=== PATIENT | female | born 1980 | race Caucasian/White ===

== ENCOUNTER → 2018-01-15 | Outpatient (CLI) | payer OTHER, BC ==
[~2018-01-15] MED LIST: ACET500; CIPRO500 MG PO; CLIN300 PO; CYCL10 PO; HYDACE5 PO; IBUP600 PO; IBUP800 PO; LEVFLO250 PO; LEVSOD75 PO; NITR100CA PO; PHENA200 PO; Pyridium200 MG PO; SERT50 PO
[2018-01-17 11:23] LABS: HCV Non Reactive (NR)
== END ==
LOC: LAB SHORT 17:49 → LAB EV 17:49
PROVIDERS: Family Medicine
DX: Z20.9 Contact with and (suspected) exposure to unspecified communicable disease (principal)
CPT/HCPCS: 84460; 86706; 86803; 87340; 87389

== ENCOUNTER → 2018-03-09 | Outpatient (CLI) | payer OTHER, BC ==
[2018-03-11 08:14] LABS: HIV SCREEN 4TH GENERATION WRFX Non Reactive (Non Reactive)
== END | disposition home or self-care (01) ==
LOC: LAB SHORT 16:21 → LAB EV 16:21
PROVIDERS: Family Medicine
DX: Z20.9 Contact with and (suspected) exposure to unspecified communicable disease (principal)
CPT/HCPCS: 86803; 87389

== ENCOUNTER → 2018-04-17 | Outpatient (CLI) | payer BC | LOC: LAB SHORT 18:00 → LAB 18:00 | DX: R30.0 Dysuria (principal) | CPT/HCPCS: 87086 ==